=== PATIENT | male | born 2000 | race Caucasian/White ===

== ENCOUNTER 2022-03-12 13:51 | Observation (INO) | payer OTHER, SELFPAY ==
[2022-03-12] VITALS (24 sets, daily range): BP systolic 89–139; BP diastolic 50–78; PULSE 12–114; RESP 14–35; TEMP 36.3–37; O2SAT 97–100; BMI 16.8
--- NOTE | ~2022-03-12 | CT_ITS ---
EXAMINATION: CT brain wo con DATE: 03/12/2022 17:57 INDICATION: Seizure TECHNIQUE: Computed tomography (CT) of the head was performed without intravenous contrast. The mA wa s adjusted according to patient size. Iterative reconstruction technique was employed. Exam dose: 60 5.33 mGy-cm total exam DLP. COMPARISON: None FINDINGS: No intracranial mass lesion or hemorrhage or cerebrovascular accident. No midline shift or mass effect. Normal ventricular size. Normal wing-white matter differentiation. No subdural or epidur al hematoma. No skull fracture. IMPRESSION: Negative Reviewed, dictated and finalized at [facility]. Reviewed, dictated and finalized at location [facility]. TANK OPERATOR IMPRESSION: Negative
--- NOTE | ~2022-03-12 | XR_ITS ---
XR chest 1V portable DATE: 03/12/2022 15:00 INDICATION: Seizure TECHNIQUE: Portable AP chest on 03/12/2022 1456 hours COMPARISON: None FINDINGS: There is prominent levoscoliosis of the upper thoracic spine and minimal dextro scoliosis o f the lower thoracic spine. Probable chronic flexion deformity of the right upper extremity at the elbow. Normal heart size. No hilar or mediastinal enlargement. No pulmonary infiltrate or consolidation, ple ural effusion or pulmonary vascular congestion or pneumothorax. IMPRESSION: No active cardiac pulmonary disease Prominent upper thoracic levoscoliosis Reviewed, dictated and finalized at location [facility]. OR SOFTWARE DEVELOPER
--- NOTE | ~2022-03-12 | MR_ITS ---
EXAMINATION: MR brain/brain stem wo/w con DATE: 03/13/2022 09:31 INDICATION: Seizure. TECHNIQUE: Magnetic resonance imaging (MRI) of the brain and brainstem was performed without and with 11 mL MultiHance intravenous contrast. COMPARISON: Head CT 03/12/2022 FINDINGS: There is a chronic encephalomalacia in the anteroinferior frontal and temporal lobes. The h ippocampi are normal and symmetric. There is no intracranial hemorrhage, acute infarction, or abnorma l intracranial mass lesion. The ventricles are normal in size. The paranasal sinuses are clear. The o rbits are normal. The mastoid air cells are normal. IMPRESSION: 1. Chronic encephalomalacia in the anteroinferior frontal and temporal lobes, consistent with traumat ic brain injury. Reviewed, dictated and finalized at location [facility]. FARM WORKER IMPRESSION: 1. Chronic encephalomalacia in the anteroinferior frontal and temporal lobes, c onsistent with traumatic brain injury.
--- NOTE | 2022-03-12 14:14 | PC.NURSE ---
Patient moved on current stretcher to hallway to move patient to big more appropriate stretcher. Referral Clerk locked stretcher and lowered rail. Patient suddenly siddhartha both fist up and started having tonic clonic seizure. Referral Clerk yelled for [facility] RESEARCH PHARMACIST to get someone to get Ativan for patient. Patient moved back into room on stretcher while still seizing. [facility] RESEARCH PHARMACIST placed patient on nonrebreather and suction set up. Patient stopped seizing, Zion, RESEARCH PHARMACIST suctioned blood from patient's mouth, assumed patient bit his tongue during seizure. Dr. Gayle down to bedside to see patient. Patient remains on nonrebreather at this time. Issues with department pyxis prevented administration of Ativan, Dr. Gayle gave verbal order for 1gm of Keppra, however also unable to get due to department pyxis not working. Will administer as soon as available. Patient remains on cardiac monitors, pulse ox, and blood pressure monitors.
--- NOTE | 2022-03-12 14:19 | PC.NURSE ---
vrbo erp dr delgadillo 2mg ativan stat. pt seizing.
[2022-03-12] MEDS: levETIRAcetam 1000MG/NACL100ML 1,000 MG/100 ML BAG 400 MG IVPB (14:35)
[2022-03-12] MEDS: SODIUM CHLORIDE 0.9% IV 1,000 ML 999 ML IV CONT (14:48)
[2022-03-12 14:52] LABS: Basophils Absolute Auto 0.1 K/mm3 (0.0-0.1); Basophils Percent Auto 0.6 % (0.2-1.2); Eosinophils Percent Auto 0.2 % (0-4.4); Hematocrit 47.6 % (42.0-52.0); Hemoglobin 15.4 g/dL (14.0-18.0); Immature Granulocyte Absolute 0.09 K/mm3 (0.00-0.031); Immature Granulocyte Percent A 0.9 % (0-0.5); Lymphocytes Absolute Auto 1.91 K/mm3 (0.9-3.2); Lymphocytes Percent Auto 18.1 % (18.3-44.2); Mean Corpuscular HGB Conc 32.4 g/dl (32-36); Mean Corpuscular Hemoglobin 30.7 pg (26-34); Mean Corpuscular Volume 94.8 fl (80-100); Mean Platelet Volume 9.1 fl (7.4-10.4); Monocytes Absolute Auto 0.5 K/mm3 (0.1-0.6); Monocytes Percent Auto 4.7 % (2.6-8.5); Neutrophils Percent Auto 75.5 % (45.5-73.1); Platelet Count Result 226 k/mm3 (150-375); Red Blood Count 5.02 M/mm3 (4.6-6.20); Red Cell Distribution Width 13.1 % (11.5-14.5); White Blood Count 10.6 K/mm3 (4.5-10.0)
[2022-03-12 15:10] LABS: Ethanol < 10 mg/dL (<10)
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
[2022-03-12 15:18] LABS: Alanine Aminotransferase 44 U/L (6-50); Albumin Level 4.8 g/dL (3.5-5.1); Alkaline Phosphatase 73 U/L (38-126); Anion Gap 28 mmol/L (8-16); Aspartate Amino Transferase 43 U/L (17-59); Bilirubin,Total 0.6 mg/dL (0.2-1.3); Blood Urea Nitrogen 10 mg/dL (9-20); Carbon Dioxide 13 mmol/L (22-30); Chloride 102 mmol/L (98-107); Estimated Glomerular Filt Rate > 60; Glucose 168 mg/dL (65-110); Potassium 3.7 mmol/L (3.4-5.0); Sodium 143 mmol/L (137-145)
[2022-03-12 17:56] LABS: Appearance Urine Clear (Clear); Bilirubin Urine Negative (Negative); Blood Urine Trace-lysed (Negative); Color Urine Yellow (Yellow); Glucose Urine UA Negative (Negative); Ketones Urine Trace mg/dL (Negative); Leukocyte Esterase Ur Negative LEU/UL (Negative); Nitrate Urine Negative (Negative); Protein Urine Trace mg/dL (Negative); Specific Grav Ur >= 1.030 (1.001-1.035); Urobilinogen Urine 0.2 mg/dL (<2.0); pH Urine 5.5 (5.0-9.0)
[2022-03-12 18:04] LABS: Mucus Urine Rare /lpf; RBC Urine 0-2 /hpf (0-2); Squamous Epithelial Cell Urine Rare /hpf (Few); WBC Urine 0-3 /hpf
[2022-03-12 18:06] LABS: Add Urine Microscopic? YES
[2022-03-12 18:10] LABS: Amphetamine Screen Urine Negative (Negative); Barbiturate Screen Urine Negative (Negative); Benzodiazepines Screen Urine Negative (Negative); Cannabinoid Screen Urine Positive (Negative); Cocaine Screen Urine Negative (Negative); Methadone Screen Urine Negative (Negative); Opiate Screen Urine Negative (Negative); Phencyclidine Screen Urine Negative (Negative)
[2022-03-12] MEDS: Please add drug allergy info to patient profile. 1 EACH XX (19:19)
--- NOTE | 2022-03-12 19:31 | PC.NURSE ---
Pt's neurologist is Lyly Pandey from [facility]. Pt has appointment this coming up to find out hour EEG results.
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
--- NOTE | 2022-03-12 20:40 | ADMGEN ---
This patient, Ray Chen, was admitted to Medical Room 346-. Patient/family oriented to hospital policies and general routines including ID bracelet, bed and alarms, visiting hours, pain management, procedures, bathroom and other care routines, personal items, smoking policy, room service/diet, and visiting hours. Information on how to activate the Rapid Response Team has been discussed. Patient/Family are encouraged to report perceived risks to care and to ask questions if they do not understand what they are told or what they should do.
[2022-03-12] MEDS: SODIUM CHLORIDE 0.9% IV 1,000 ML 125 ML IV CONT (21:36)
[2022-03-12] MEDS: levETIRAcetam 500MG/NACL 100ML 500 MG/100 ML BAG 400 MG IVPB (21:36)
[2022-03-12] MEDS: ACETAMINOPHEN 325 MG TABLET 650 MG PO (21:37)
[2022-03-12] MEDS: NICOTINE (*PBKC) 21 MG PATCH 1 PATCH TRANSDERM (23:07)
[2022-03-12 23:51] LABS: Influenza A QL RT-PCR Negative (Negative); Influenza B QL RT-PCR Negative (Negative); RSV RNA, RT-PCR Negative (Negative); SARS-CoV-2 RNA PCR Negative
[2022-03-13] VITALS: PULSE 75
[2022-03-13] MEDS: ONDANSETRON INJ 4 MG/2 ML VIAL IV PUSH (03:31)
[2022-03-13 04:00] VITALS: PULSE 68
[2022-03-13 06:00] VITALS: BP 122/63; PULSE 74; RESP 14; TEMP 37; O2SAT 100
[2022-03-13 06:06] LABS: Anion Gap 7 mmol/L (8-16); Blood Urea Nitrogen 12 mg/dL (9-20); Calcium 8.8 mg/dL (8.4-10.2); Carbon Dioxide 24 mmol/L (22-30); Chloride 105 mmol/L (98-107); Estimated CRCL calculation 60 ml/min; Estimated Glomerular Filt Rate > 60; Glucose 118 mg/dL (65-110); Potassium 3.3 mmol/L (3.4-5.0); Sodium 136 mmol/L (137-145)
[2022-03-13 08:00] VITALS: PULSE 80
[2022-03-13] MEDS: levETIRAcetam 500MG/NACL 100ML 500 MG/100 ML BAG 400 MG IVPB (08:35)
[2022-03-13] MEDS: POTASSIUM CHLORIDE 20 MEQ TABLET PO (10:04)
[2022-03-13 10:21] VITALS: BMI 16.8
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
--- NOTE | 2022-03-13 13:01 | PC.NURSE ---
Pt refusing cardiac tele saying it is uncomfortable. Educated pt on the need for monitoring and he stated he would remove it himself. Pt has since removed and refuses to put back on stating it bothers me when I sleep .
[2022-03-13 14:00] VITALS: BP 138/64; PULSE 84; RESP 18; TEMP 36.3; O2SAT 99
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
[2022-03-17 16:10] LABS: Glucose Point of Care 198 mg/dl (65-105)
== END 2022-03-13 17:00 | disposition home or self-care (01) ==
LOC: ANHED 19:44 → ANH3MED 20:17
PROVIDERS: Admitting Provider Internal Medicine; Emergency Provider Emergency Medicine; Visit Provider Physician Assistant
DX: G40.909 Epilepsy, unspecified, not intractable, without status epilepticus (principal); Z87.820 Personal history of traumatic brain injury; F12.90 Cannabis use, unspecified, uncomplicated; F17.290 Nicotine dependence, other tobacco product, uncomplicated; F17.210 Nicotine dependence, cigarettes, uncomplicated; F10.90 Alcohol use, unspecified, uncomplicated; Y90.0 Blood alcohol level of less than 20 mg/100 ml; Z20.822 Contact with and (suspected) exposure to COVID-19; Z79.899 Other long term (current) drug therapy
CPT/HCPCS: 36415; 70450; 70553; 71045; 80048; 80053; 80307; 81001; 82948; 85025; 87637; 96361; 96374; 99285; A9270; A9577; G0378; G0379; J1953; J2405; J7030